=== PATIENT | female | born 1990 | race American Indian/Alaskan Native ===

== ENCOUNTER 2017-12-21 22:21 | Emergency (ER) | payer SELFPAY ==
[2017-12-21] MEDS ORDERED: DELTASONE ONE (22:23)
[2017-12-21] MEDS ORDERED: DUONEB *Not for PRN Use IH ONE ×2 (22:23→22:39)
[2017-12-21] MEDS ORDERED: PROVENTIL IH ONE ×2 (22:23→22:40)
[2017-12-21 22:39] VITALS: BP 153/98
[2017-12-21] MEDS ORDERED: DELTASONE PO ONE (22:40)
--- NOTE | 2017-12-22 00:39 | Emergency Department Report ---
ED Asthma HPI - General Chief Complaint: Adult Asthma Stated Complaint: VIRGILIO Time Seen by Provider: 12/22/17 00:10 Source: patient Mode of arrival: Ambulatory Limitations: No Limitations - History of Present Illness Initial Comments: 27-year-old [place] female comes in complaining of asthma attack. She reports that she ran out of her inhaler. She denies any fever chills no nausea no vomiting she does admit to wheezing and shortness of breath with exertion. Patient denies any chest pain. Patient reports past medical history of asthma currently takes no medication besides her pro-air inhaler and has no known drug allergies. MD Complaint: "asthma attack" -: This afternoon Asthma History: history of frequent attac Severity: similar to prior Context: ran out of meds Associated Symptoms: none - Related Data Current Asthma Therapy: inhaled bronchodilator Previous Rx's Medication Instructions Recorded Last Taken Type ALBUTEROL Inhaler [Proair] 2 puff IH QID PRN #1 inhalation 12/22/17 Unknown Rx Prednisone [predniSONE 5 mg (6-Day 5 mg PO .TAPER #1 tab.ds.pk 12/22/17 Unknown Rx Pack, 21 Tabs)] Allergies Allergy/AdvReac Type Severity Reaction Status Date / Time No Known Allergies Allergy Unverified 12/21/17 22:39 ED Review of Systems ROS: Stated complaint: VIRGILIO Other details as noted in HPI Constitutional: denies: chills, fever Eyes: denies: eye pain, eye discharge, vision change ENT: denies: ear pain, throat pain Respiratory: cough, shortness of breath, SOB with exertion, wheezing Cardiovascular: denies: chest pain, palpitations Endocrine: no symptoms reported Gastrointestinal: denies: abdominal pain, nausea, diarrhea Genitourinary: denies: urgency, dysuria, discharge Musculoskeletal: denies: back pain, joint swelling, arthralgia Skin: denies: rash, lesions Neurological: denies: headache, weakness, paresthesias Psychiatric: denies: anxiety, depression Hematological/Lymphatic: denies: easy bleeding, easy bruising ED Past Medical Hx - Past Medical History Previous Medical History?: Yes Hx Asthma: Yes - Surgical History Past Surgical History?: No - Social History Smoking Status: Never Smoker Substance Use Type: None - Medications Home Medications: Home Medications Medication Instructions Recorded Confirmed Last Taken Type ALBUTEROL Inhaler [Proair] 2 puff IH QID PRN #1 inhalation 12/22/17 Unknown Rx Prednisone [predniSONE 5 mg (6-Day 5 mg PO .TAPER #1 tab.ds.pk 12/22/17 Unknown Rx Pack, 21 Tabs)] ED Physical Exam - General Limitations: No Limitations General appearance: alert, in no apparent distress - Head Head exam: Present: atraumatic, normocephalic - Eye Eye exam: Present: normal appearance - ENT ENT exam: Present: mucous membranes moist - Neck Neck exam: Present: normal inspection - Respiratory Respiratory exam: Present: rhonchi. Absent: respiratory distress, wheezes - Cardiovascular Cardiovascular Exam: Present: normal rhythm, tachycardia. Absent: systolic murmur, diastolic murmur, rubs, gallop - GI/Abdominal GI/Abdominal exam: Present: soft, normal bowel sounds - Extremities Exam Extremities exam: Present: normal inspection - Back Exam Back exam: Present: normal inspection - Neurological Exam Neurological exam: Present: alert, oriented X3 - Psychiatric Psychiatric exam: Present: normal affect, normal mood - Skin Skin exam: Present: warm, dry, intact, normal color. Absent: rash ED Course Vital Signs 12/21/17 12/21/17 12/22/17 22:36 23:46 01:00 Temperature 98.5 F Pulse Rate 124 H 129 H 99 H Respiratory 28 H 24 17 Rate Blood Pressure 153/98 O2 Sat by Pulse 94 98 99 Oximetry - Reevaluation(s) Reevaluation #1: 12/22/17 00:44 Patient reports that she feels much better after having nebulizer treatment and steroids. She feels she is able to go home. ED Medical Decision Making - Medical Decision Making Patient's been evaluated by this provider fast track. Patient reports that she feels much better Critical care attestation.: If time is entered above; I have spent that time in minutes in the direct care of this critically ill patient, excluding procedure time. ED Disposition Clinical Impression: Asthma attack Qualifiers: Asthma severity: unspecified severity Asthma persistence: unspecified Qualified Code(s): J45.901 - Unspecified asthma with (acute) exacerbation Disposition: TO HOME OR SELFCARE Is pt being admited?: No Does the pt Need Aspirin: No Condition: Stable Additional Instructions: Please take medication and inhaler as prescribed. Follow up with the primary care provider for further evaluation and management of her asthma. Prescriptions: ALBUTEROL Inhaler [Proair] 2 puff IH QID PRN #1 inhalation PRN Reason: Shortness Of Breath Prednisone [predniSONE 5 mg (6-Day Pack, 21 Tabs)] 5 mg PO .TAPER #1 tab.ds.pk Referrals: KIERAN WOODWARD MD [Primary Care Provider] - 3-5 Days Forms: Work/School Release Form(ED)
== END 2017-12-22 01:00 | disposition home or self-care (01) ==
LOC: ED 22:21
DX: J45.901 Unspecified asthma with (acute) exacerbation (principal)
CPT/HCPCS: 99282; J7512